=== PATIENT | female | born 1940 | race Caucasian/White ===

== ENCOUNTER 2019-02-07 18:59 | Emergency (ER) | payer MEDICARE ==
[~2019-02-07] VITALS: Ht 172.7 cm; Wt 56.2 kg
[~2019-02-07 18:59] MED LIST: LEVO50TA8 PO
[2019-02-07 19:17] VITALS: BP 125/79
--- NOTE | 2019-02-07 19:36 | NUR ---
RADIOLOGY AT BEDSIDE FOR XRAY
== END 2019-02-07 20:01 | disposition home or self-care (01) ==
LOC: ER 19:08
DX: S00.83XA Contusion of other part of head, initial encounter (principal); S80.02XA Contusion of left knee, initial encounter; E03.9 Hypothyroidism, unspecified; Z88.6 Allergy status to analgesic agent; Z91.040 Latex allergy status; Z60.2 Problems related to living alone; W01.198A Fall on same level from slipping, tripping and stumbling with subsequent striking against other object, initial encounter; Y93.89 Activity, other specified; Y92.89 Other specified places as the place of occurrence of the external cause; Y99.8 Other external cause status
CPT/HCPCS: 73564-TC

== ENCOUNTER 2022-03-24 14:34 | Emergency (ER) | payer BC, MEDICARE, OTHER ==
[~2022-03-24] VITALS: Ht 172.7 cm; Wt 53.1 kg
--- NOTE | 2022-03-24 14:35 | NUR ---
TO ER BED 9. BIBRA 839 FROM HOME C/O DIZZINESS AND WEAKNESS STARTED THIS MORNING. BG 122. PT IS A7OX3. ATTATCHED TO MONITOR. AWAITING MD JESUS.
--- NOTE | 2022-03-24 14:41 | NUR ---
IV ETSBALIHSED R UPPER ARM 20G. LABS DRAWN AND COLLECTED AT BEDSIDE.
[2022-03-24 15:06] LABS: BASOPHILS % (AUTO) 0.7 % (0.0-2.0); EOSINOPHILS % (AUTO) 1.2 % (0.0-6.0); HEMATOCRIT 40 % (33-45); HEMOGLOBIN 13.6 g/dL (11.5-14.8); LYMPHOCYTES # (AUTO) 1.1 K/uL (0.8-4.8); LYMPHOCYTES % (AUTO) 22.4 % (20.0-44.0); MEAN CORPUSCULAR HGB CONC 34 g/dl (31.0-36.0); MEAN CORPUSCULAR VOLUME 94 fL (82-100); MONOCYTES # (AUTO) 0.4 K/uL (0.1-1.30); NEUTROPHILS # (AUTO) 3.2 K/uL (1.8-8.9); NEUTROPHILS % (AUTO) 66.7 % (43.0-81.0); PLATELET COUNT (AUTO) 199 K/uL (150-450); RED BLOOD CELL COUNT(AUTO) 4.29 MIL/uL (4.0-5.2); WHITE BLOOD COUNT (AUTO) 4.8 K/uL (4.3-11.0)
--- NOTE | 2022-03-24 15:10 | NUR ---
PT TAKEN TO CT
[2022-03-24 15:24] LABS: ALANINE AMINOTRANSFERASE 25 U/L (12-78); ALBUMIN 4.4 g/dL (3.4-5.0); ALCOHOL, BLOOD < 3 mg/dL (0-0); ALKALINE PHOSPHATASE 89 U/L (46-116); ASPARTATE AMINOTRANSFERASE 32 U/L (15-37); BILIRUBIN,DIRECT 0.2 mg/dL (0.0-0.2); BILIRUBIN,TOTAL 0.7 mg/dL (0.2-1.0); CALCIUM, SERUM 9.2 mg/dL (8.5-10.1); CARBON DIOXIDE 27 mmol/L (21-32); CHLORIDE 90 mmol/L (98-107); CREATININE 0.7 mg/dL (0.6-1.3); GLUCOSE 119 mg/dL (74-106); POTASSIUM 4.1 mmol/L (3.5-5.1); SODIUM SERUM 127 mmol/L (136-145); UREA NITROGEN, BLOOD 13 mg/dL (7-18)
[2022-03-24] MEDS ORDERED: IV NS 0.9% 1,000 ML BAG IV ONE (16:00)
--- NOTE | 2022-03-24 16:08 | NUR ---
COVID TEST COLLECTED AND SENT
[2022-03-24 16:18] LABS: BILIRUBIN,URINE NEGATIVE (NEGATIVE); COLOR,URINE YELLOW (YELLOW); LEUKOCYTE ESTERASE ,URINE SMALL (NEGATIVE); NITRITE, URINE NEGATIVE (NEGATIVE); PH,URINE 6.5 (5.0-8.0); PROTEIN,URINE NEGATIVE (NEGATIVE); UGLUCOSE NEGATIVE (NEGATIVE); UROBILINOGEN,URINE 0.2 EU/dL (0.2)
[2022-03-24 16:44] LABS: BACTERIA,URINE None seen /HPF (None Seen); RBC,URINE 0-2 /HPF (0-2); WBC,URINE 0-2 /HPF (0-3)
[2022-03-24 16:45] LABS: SQUAMOUS EPITHELIAL CELL,UR 0-2 /HPF (None Seen)
--- NOTE | 2022-03-24 18:05 | NUR ---
DR. NOE OF [facility] SPEAKING WITH DR. KHALIL.
--- NOTE | 2022-03-24 18:17 | NUR ---
SADA FROM [facility] [phone] PT GOING TO [facility]... INSTRUCTIONS TO FOLLOW.
--- NOTE | 2022-03-24 19:49 | NUR ---
[address] [phone] [place] [address] [phone] (FOR QUESTIONS)
--- NOTE | 2022-03-24 19:58 | NUR ---
Selin cooley in [facility] - 03/24/22 at 2012 by [facility] ETA 2030
--- NOTE | 2022-03-24 20:09 | NUR ---
MORE TRANSPORTATION INFO: [facility] ETA 2130 ALS.
--- NOTE | 2022-03-24 20:10 | NUR ---
REPORT GIVEN TO PINA
[2022-03-24 20:38] VITALS: BP 135/64
--- NOTE | 2022-03-24 20:50 | NUR ---
Picked up by [facility] on cardiac rehabilitation specialist per ACLS. All V/S stable at time of transfer
[2022-03-24 21:36] LABS: THYROID STIMULATING HORMONE 3.363 uIU/mL (0.358-3.74)
== END 2022-03-24 20:55 | disposition short-term general hospital (02) ==
LOC: ER 14:36
DX: R53.1 Weakness (principal); E87.1 Hypo-osmolality and hyponatremia; Z20.822 Contact with and (suspected) exposure to COVID-19; R94.31 Abnormal electrocardiogram [ECG] [EKG]; E03.9 Hypothyroidism, unspecified; Z79.890 Hormone replacement therapy; Z88.6 Allergy status to analgesic agent; Z91.040 Latex allergy status
CPT/HCPCS: 36415; 70450; 71045; 80048; 80076; 80320; 81001; 83605; 84443; 84484; 85025; 87040 ×2; 87086; 87426; 93005; 96360; 99285; C9803; J7030; G0480; J7040

== ENCOUNTER 2022-04-16 13:20 | Emergency (ER) | payer OTHER ==
[~2022-04-16] VITALS: Ht 172.7 cm; Wt 52.2 kg
[2022-04-16 14:11] LABS: BASOPHILS % (AUTO) 0.5 % (0.0-2.0); EOSINOPHILS % (AUTO) 0.9 % (0.0-6.0); HEMATOCRIT 40 % (33-45); HEMOGLOBIN 13.7 g/dL (11.5-14.8); LYMPHOCYTES # (AUTO) 0.9 K/uL (0.8-4.8); LYMPHOCYTES % (AUTO) 23.1 % (20.0-44.0); MEAN CORPUSCULAR HGB CONC 34 g/dl (31.0-36.0); MEAN CORPUSCULAR VOLUME 94 fL (82-100); MONOCYTES # (AUTO) 0.5 K/uL (0.1-1.30); MONOCYTES % (AUTO) 12.9 % (2.0-12.0); NEUTROPHILS # (AUTO) 2.3 K/uL (1.8-8.9); NEUTROPHILS % (AUTO) 62.6 % (43.0-81.0); PLATELET COUNT (AUTO) 204 K/uL (150-450); RED BLOOD CELL COUNT(AUTO) 4.32 MIL/uL (4.0-5.2); WHITE BLOOD COUNT (AUTO) 3.7 K/uL (4.3-11.0)
[2022-04-16 14:21] LABS: CALCIUM, SERUM 9.1 mg/dL (8.5-10.1); CARBON DIOXIDE 31 mmol/L (21-32); CHLORIDE 86 mmol/L (98-107); CREATININE 0.7 mg/dL (0.6-1.3); GLUCOSE 147 mg/dL (74-106); POTASSIUM 4.1 mmol/L (3.5-5.1); SODIUM SERUM 121 mmol/L (136-145); UREA NITROGEN, BLOOD 8 mg/dL (7-18)
[2022-04-16] MEDS ORDERED: IV NS 0.9% 1,000 ML BAG IV ONE (15:00)
[2022-04-16 15:45] LABS: THYROID STIMULATING HORMONE 3.803 uIU/mL (0.358-3.74)
[2022-04-16 21:35] VITALS: BP 117/53
[2022-04-17] MEDS ORDERED: LEVOTHYROXINE SODIUM 50 MCG TABLET PO SCH (07:30)
== END 2022-04-16 21:38 | disposition short-term general hospital (02) ==
LOC: ER 13:25
DX: R53.1 Weakness (principal); E87.1 Hypo-osmolality and hyponatremia; Z20.822 Contact with and (suspected) exposure to COVID-19; E03.9 Hypothyroidism, unspecified; Z79.890 Hormone replacement therapy; R94.31 Abnormal electrocardiogram [ECG] [EKG]; M50.30 Other cervical disc degeneration, unspecified cervical region
CPT/HCPCS: 36415; 70450; 71045; 72125; 80048; 82962; 84439; 84443; 84484; 85025; 87081; 87426; 93005; 96360; 96361; 99291; C9803; J7030

== ENCOUNTER 2022-06-02 01:14 | Emergency (ER) | payer OTHER ==
[~2022-06-02] VITALS: Ht 172.7 cm; Wt 49.0 kg
--- NOTE | 2022-06-02 01:30 | NUR ---
PATIENT BIBRA FROM HOME C/O THIRSTY. NO MEDICAL COMPLAINT PER PATIENT. PATIENT IS A/OX 4, RR EVEN AND UNLABORED, NO SOB NOTED, PT AFEBRILE. PATIENT TAKEN TO ER BED 11. PATIENT CONNECTED TO MONITORS. WILL CONTINUE TO MONITOR.
[2022-06-02 02:50] LABS: BASOPHILS % (AUTO) 0.5 % (0.0-2.0); EOSINOPHILS % (AUTO) 2.5 % (0.0-6.0); HEMATOCRIT 40 % (33-45); HEMOGLOBIN 13.6 g/dL (11.5-14.8); LYMPHOCYTES % (AUTO) 26.4 % (20.0-44.0); MEAN CORPUSCULAR HGB CONC 34 g/dl (31.0-36.0); MEAN CORPUSCULAR VOLUME 95 fL (82-100); MONOCYTES # (AUTO) 0.5 K/uL (0.1-1.30); MONOCYTES % (AUTO) 12.2 % (2.0-12.0); NEUTROPHILS # (AUTO) 2.2 K/uL (1.8-8.9); NEUTROPHILS % (AUTO) 58.4 % (43.0-81.0); PLATELET COUNT (AUTO) 179 K/uL (150-450); RED BLOOD CELL COUNT(AUTO) 4.23 MIL/uL (4.0-5.2); WHITE BLOOD COUNT (AUTO) 3.7 K/uL (4.3-11.0)
[2022-06-02 03:03] LABS: CARBON DIOXIDE 33 mmol/L (21-32); CHLORIDE 94 mmol/L (98-107); CREATININE 0.7 mg/dL (0.6-1.3); GLUCOSE 95 mg/dL (74-106); POTASSIUM 3.7 mmol/L (3.5-5.1); SODIUM SERUM 132 mmol/L (136-145); UREA NITROGEN, BLOOD 8 mg/dL (7-18)
[2022-06-02 03:09] LABS: ALANINE AMINOTRANSFERASE 23 U/L (12-78); ALBUMIN 4.2 g/dL (3.4-5.0); ALKALINE PHOSPHATASE 95 U/L (46-116); ASPARTATE AMINOTRANSFERASE 27 U/L (15-37); BILIRUBIN,TOTAL 0.7 mg/dL (0.2-1.0); TOTAL PROTEIN, SERUM 7.3 g/dL (6.4-8.2)
--- NOTE | 2022-06-02 05:00 | NUR ---
EZEQUIEL FORD - [facility] [phone]
--- NOTE | 2022-06-02 07:15 | NUR ---
0800 CHUTE PULLER TIME VIA [facility].
--- NOTE | 2022-06-02 07:18 | NUR ---
PT'S NEIGHBOR, ALFONZO, WILL BE WAITING FOR HER ARIVAL AT HER RESIDENCE.
--- NOTE | 2022-06-02 07:33 | NUR ---
PT PROVIDED WITH A MEAL
--- NOTE | 2022-06-02 08:29 | NUR ---
TRANSPORTATION ARRIVED TO TAKE PT BACK HOME, PT BEING TRANSPORTED HOME IN STABLE CONDITION, NEIGHBORS NOTIFIED.
[2022-06-02 08:43] VITALS: BP 141/70
--- NOTE | 2022-06-02 08:43 | NUR ---
Patient discharged to home in stable condition. Written and verbal after care instructions given. Patient verbalizes understanding of instruction.
== END 2022-06-02 08:43 | disposition home or self-care (01) ==
LOC: ER 01:16
DX: E86.0 Dehydration (principal); E03.9 Hypothyroidism, unspecified; Z88.8 Allergy status to other drugs, medicaments and biological substances; Z60.2 Problems related to living alone; Z79.899 Other long term (current) drug therapy
CPT/HCPCS: 36415; 80053-TC; 82962-TC; 84439-TC; 84443-TC; 85025-TC

== ENCOUNTER 2022-08-10 09:52 | Inpatient (IN) | payer OTHER ==
[~2022-08-10] VITALS: Ht 172.7 cm; Wt 48.1 kg
--- NOTE | 2022-08-10 10:10 | NUR ---
head of academic technology at the bedside
[2022-08-10 10:23] LABS: BASOPHILS % (AUTO) 0.5 % (0.0-2.0); EOSINOPHILS % (AUTO) 2.9 % (0.0-6.0); HEMATOCRIT 39 % (33-45); HEMOGLOBIN 13.2 g/dL (11.5-14.8); LYMPHOCYTES # (AUTO) 1.2 K/uL (0.8-4.8); LYMPHOCYTES % (AUTO) 25.8 % (20.0-44.0); MEAN CORPUSCULAR HGB CONC 34 g/dl (31.0-36.0); MEAN CORPUSCULAR VOLUME 95 fL (82-100); MONOCYTES # (AUTO) 0.7 K/uL (0.1-1.30); MONOCYTES % (AUTO) 14.3 % (2.0-12.0); NEUTROPHILS # (AUTO) 2.6 K/uL (1.8-8.9); NEUTROPHILS % (AUTO) 56.5 % (43.0-81.0); PLATELET COUNT (AUTO) 216 K/uL (150-450); RED BLOOD CELL COUNT(AUTO) 4.09 MIL/uL (4.0-5.2); WHITE BLOOD COUNT (AUTO) 4.6 K/uL (4.3-11.0)
--- NOTE | 2022-08-10 10:52 | NUR ---
AMBULATED TO THE RESTROOM WITH STEADY GAIT
--- NOTE | 2022-08-10 10:54 | NUR ---
URINE COLLECTED AND SENT TO LAB
[2022-08-10 11:09] LABS: ALANINE AMINOTRANSFERASE 23 U/L (12-78); ALBUMIN 3.8 g/dL (3.4-5.0); ALKALINE PHOSPHATASE 235 U/L (46-116); ASPARTATE AMINOTRANSFERASE 26 U/L (15-37); BILIRUBIN,DIRECT 0.2 mg/dL (0.0-0.2); BILIRUBIN,TOTAL 0.8 mg/dL (0.2-1.0); CALCIUM, SERUM 8.7 mg/dL (8.5-10.1); CARBON DIOXIDE 27 mmol/L (21-32); CHLORIDE 95 mmol/L (98-107); CREATININE 0.7 mg/dL (0.6-1.3); GLUCOSE 106 mg/dL (74-106); POTASSIUM 4.1 mmol/L (3.5-5.1); SODIUM SERUM 130 mmol/L (136-145); TOTAL PROTEIN, SERUM 6.9 g/dL (6.4-8.2); UREA NITROGEN, BLOOD 15 mg/dL (7-18)
[2022-08-10] MEDS ORDERED: DOCU-141 PO (11:11)
--- NOTE | 2022-08-10 11:17 | NUR ---
COVID ANTIGEN SWAB DONE AND SENT TO THE LAB
[2022-08-10 11:25] LABS: BILIRUBIN,URINE NEGATIVE (NEGATIVE); COLOR,URINE YELLOW (YELLOW); LEUKOCYTE ESTERASE ,URINE MODERATE (NEGATIVE); NITRITE, URINE NEGATIVE (NEGATIVE); PROTEIN,URINE NEGATIVE (NEGATIVE); UGLUCOSE NEGATIVE (NEGATIVE); UROBILINOGEN,URINE 0.2 EU/dL (0.2)
[2022-08-10 12:16] LABS: BACTERIA,URINE Few /HPF (None Seen); RBC,URINE 0-2 /HPF (0-2); SQUAMOUS EPITHELIAL CELL,UR Few /HPF (None Seen)
[2022-08-10] MEDS ORDERED: CEFTRIAXONE 1GM BAG (ER ONLY) 50 ML IV ONE (13:29)
[2022-08-10] MEDS ORDERED: CEFTRIAXONE 1GM BAG (ER ONLY) 1 GM/50 ML PIGGYBACK IV ONE (13:30)
--- NOTE | 2022-08-10 14:40 | NUR ---
BED 324-2
--- NOTE | 2022-08-10 14:49 | NUR ---
REPORT GIVEN TO MARGA MAYES OF [facility]
--- NOTE | 2022-08-10 15:50 | NUR ---
ADMISSION NOTE Received patient via wheelchair from ER. Report given by whitney. Patient is A/O x 2, able to make needs known. Stable on room air breathing evenly and unlabored. Patient oriented to room and how to use the call light. All belongings accounted for, belonging sheet signed by patient. VS taken as follows: BP 106/54, HR 61, RR 18, Temp 97.5, SPO2 99%. Lungs clear on auscultation. Bowel sounds present x4. Skin assessment done: multiple discoloration and sacrum DTI noted, photos taken and placed in chart. Patient denies any pain at this time. Safety precautions in place: bed in low, locked position; siderails up x2; call light within reach. Will continue to monitor.
--- NOTE | 2022-08-10 19:23 | NUR ---
MS RN CLOSING NOTE Patient in bed, resting comfortably. A/O x 2, able to make needs known. Stable on room air, no SOB or s/s of distress noted. IV access on LFA #20 SL, intact and patent. Patient denies any pain or discomfort a this time. All needs attended to. Due meds given. Safety precautions maintained: bed in low, locked position; siderails up x 2; call light within reach. Will endorse to machinist 2nd shift nurse for MARSHA.
--- NOTE | 2022-08-10 19:45 | NUR ---
MS RN OPENING NOTES RECEIVED PATIENT IN BED; AWAKE, ALERT AND ORIENTED X 2; WITH EPISODES OF FORGETFULNESS. BREATHING EVEN AND NONLABORED. ON ROOM AIR; TOLERATING WELL. NOT IN ANY FORM OF RESPIRATORY DISTRESS. DENIES ANY PAIN OR DISCOMFORT AT THIS TIME. WITH IV ACCESS ON LEFT FOREARM 20g; PATENT AND INTACT INFUSING WITH LR 1L REGULATED @ 80 ML/HR; FLUSHES WELL. NO INFILTRATION NOTED. NEEDS ANTICIPATED. SAFETY PRECAUTIONS IMPLEMENTED: CALL LIGHT AND TABLE WITHIN EASY REACH, SIDE RAILS UP X 2, BED IN LOWEST LOCKED POSITION. WILL CONTINUE PLAN OF CARE.
[2022-08-10 20:00] VITALS: BP 100/68
[2022-08-10] MEDS ORDERED: ONDANSETRON HCL/PF 4 MG/2 ML VIAL IVP PRN (20:00)
[2022-08-10] MEDS ORDERED: Z GUARD REMEDY 4 OZ OINT TP PRN (20:00)
[2022-08-10] MEDS ORDERED: DOCUSATE SODIUM 100 MG CAPSULE PO PRN (20:00)
[2022-08-10] MEDS ORDERED: ACETAMINOPHEN 325 MG TABLET PO PRN (20:00)
[2022-08-10] MEDS: IV LR 1000 ML 1,000 ML IV PRN (20:28)
[2022-08-10 20:32] VITALS: BP 100/68
[2022-08-10] MEDS: ENOXAPARIN SODIUM 40 MG/0.4 ML DISP.SYRIN SQ SCH (21:16)
--- NOTE | 2022-08-11 06:56 | NUR ---
MS RN CLOSING NOTES PATIENT IN BED; AWAKE, A/O X 2; WITH EPISODES OF FORGETFULNESS. RESPIRATIONS EVEN AND UNLABORED. STABLE ON ROOM AIR. IN NO APPARENT DISTRESS. NO C/O PAIN OR DISCOMFORT AT THIS TIME. WITH IV ACCESS ON LFA 20g; PATENT AND INTACT INFUSING WITH LR 1L REGULATED @ 80 ML/HR; FLUSHES WELL. ALL NEEDS MET. SAFETY PRECAUTIONS MAINTAINED: CALL LIGHT AND TABLE WITHIN EASY REACH, SIDE RAILS UP X 2, BED IN LOWEST LOCKED POSITION. ENDORSED TO DARRYN MAYES FOR MARSHA.
[2022-08-11 06:57] LABS: BASOPHILS % (AUTO) 0.6 % (0.0-2.0); EOSINOPHILS % (AUTO) 2.3 % (0.0-6.0); HEMATOCRIT 36 % (33-45); HEMOGLOBIN 12.4 g/dL (11.5-14.8); LYMPHOCYTES # (AUTO) 0.8 K/uL (0.8-4.8); LYMPHOCYTES % (AUTO) 18.9 % (20.0-44.0); MEAN CORPUSCULAR HGB CONC 34 g/dl (31.0-36.0); MEAN CORPUSCULAR VOLUME 96 fL (82-100); MONOCYTES # (AUTO) 0.5 K/uL (0.1-1.30); MONOCYTES % (AUTO) 11.9 % (2.0-12.0); NEUTROPHILS # (AUTO) 2.8 K/uL (1.8-8.9); NEUTROPHILS % (AUTO) 66.3 % (43.0-81.0); PLATELET COUNT (AUTO) 208 K/uL (150-450); WHITE BLOOD COUNT (AUTO) 4.2 K/uL (4.3-11.0)
[2022-08-11 07:35] LABS: ALBUMIN 3.3 g/dL (3.4-5.0); BILIRUBIN,TOTAL 0.6 mg/dL (0.2-1.0); CALCIUM, SERUM 8.4 mg/dL (8.5-10.1); CREATININE 0.7 mg/dL (0.6-1.3); PHOSPHORUS 3.5 mg/dL (2.5-4.9); POTASSIUM 3.7 mmol/L (3.5-5.1); TOTAL PROTEIN, SERUM 6.2 g/dL (6.4-8.2)
--- NOTE | 2022-08-11 07:40 | NUR ---
MS RN OPENING NOTES RECEIVED PATIENT IN BED; AWAKE, A/O X 2; WITH EPISODES OF FORGETFULNESS. STABLE ON ROOM AIR WITH NO NOTED SOB OR ANY DISTRESS. PATIENT IS ABLE TO AMBULATE ALTHOUGH UNSTEADY, HAS BSC. DENIED PAIN OR DISCOMFORT AT THIS TIME. WITH IV ACCESS ON LFA 20G; PATENT AND INTACT INFUSING WITH LR AT @ 80 ML/HR; FLUSHING WELL. SAFETY PRECAUTIONS IN PLACE: CALL LIGHT AND TABLE WITHIN EASY REACH, SIDE RAILS UP X 2, BED IN LOWEST LOCKED POSITION. WILL CONTINUE TO MONITOR.
[2022-08-11 08:00] VITALS: BP 98/66
[2022-08-11] MEDS: LEVOTHYROXINE SODIUM 50 MCG TABLET PO SCH (08:07)
[2022-08-11 09:59] LABS: THYROID STIMULATING HORMONE 4.636 uIU/mL (0.358-3.74)
[2022-08-11] MEDS: CEFTRIAXONE 1 G in IV D5W 50 ML IV SCH (10:02)
--- NOTE | 2022-08-11 11:42 | NUR ---
WOUND CARE CONSULT: PT PRESENTS EXTREMELY THIN AND BONY WITH SACRAL INTACT DEEP TISSUE INJURY, PRESENT ON ADMISSION. RECOMMENDATIONS MADE FOR SKIN PROTECTION. DISCUSSED WITH NURSING STAFF. IN AGREEMENT WITH PLAN OF CARE. PT IS CONTINENT. IN AGREEMENT WITH PLAN OF CARE. Addendum: 08/11/22 at 1144 by TONI JOHNSON WNDNU Amended: Links added.
--- NOTE | 2022-08-11 11:43 | NUR ---
RN NOTES WOUND NURSE TONI AT THE BEDSIDE.
--- NOTE | 2022-08-11 12:05 | NUR ---
RN NOTES CALLED [facility] [employer] FOR FEMALE PAD ORDERED BY WOUND NURSE TONI
--- NOTE | 2022-08-11 13:56 | NUR ---
RN NOTES DVT PUMP ORDERED. CALLED [facility] [employer].
[2022-08-11 16:00] VITALS: BP 100/56
[2022-08-11] MEDS: ENSURE ENLIVE 237 ML LIQUID (VANILLA) PO SCH (17:42)
--- NOTE | 2022-08-11 18:55 | NUR ---
MS RN CLOSING NOTES PATIENT IN BED; AWAKE, A/O X 2; STABLE ON ROOM AIR WITH NO NOTED SOB OR ANY DISTRESS. PATIENT IS ABLE TO AMBULATE ALTHOUGH UNSTEADY, HAS BSC. DENIED PAIN OR DISCOMFORT AT THIS TIME. WITH IV ACCESS ON LFA 20G; PATENT AND INTACT INFUSING WITH LR AT @ 80 ML/HR; FLUSHING WELL. WOUND CARE PROVIDED AND ALL KNEEDS MET. SAFETY PRECAUTIONS IN PLACE: CALL LIGHT AND TABLE WITHIN EASY REACH, SIDE RAILS UP X 2, BED IN LOWEST LOCKED POSITION. ENDORSED TO THE NEXT SHIFT.
--- NOTE | 2022-08-11 19:25 | NUR ---
MS RN OPENING NOTE PATIENT RECEIVED RESTING IN BED COMFORTABLY; A/OX2, CONFUSED/FORGETFUL; BREATHING EVEN AND UNLABORED; TOLERATING ROOM AIR WELL; NO DISTRESS NOTED; PATIENT DENIES PAIN; PATIENT AMBULATORY WITH ASSIST, USES BSC THROUGHOUT NIGHT; LFA #20G INTACT AND PATENT, FLUSHING WELL; TOLERATING IVF WELL; NO S/S OF REDNESS OR INFILTRATION NOTED; SAFETY PRECAUTIONS IMPLEMENTED; BED LOCKED IN LOW POSITION; SIDE RAILSX2, CALL LIGHT WITHIN EASY REACH; WILL CONT PLAN OF CARE
[2022-08-11 20:00] VITALS: BP 125/74
[2022-08-11] MEDS: IV LR 1000 ML 1,000 ML IV PRN (21:05)
[2022-08-11] MEDS: ENOXAPARIN SODIUM 40 MG/0.4 ML DISP.SYRIN SQ SCH (21:07)
[2022-08-11 22:34] VITALS: BP 125/74
[2022-08-12 06:44] LABS: BASOPHILS % (AUTO) 0.5 % (0.0-2.0); EOSINOPHILS % (AUTO) 3.7 % (0.0-6.0); HEMATOCRIT 39 % (33-45); HEMOGLOBIN 13.2 g/dL (11.5-14.8); LYMPHOCYTES # (AUTO) 0.9 K/uL (0.8-4.8); LYMPHOCYTES % (AUTO) 22.1 % (20.0-44.0); MEAN CORPUSCULAR HGB CONC 34 g/dl (31.0-36.0); MEAN CORPUSCULAR VOLUME 96 fL (82-100); MONOCYTES # (AUTO) 0.5 K/uL (0.1-1.30); MONOCYTES % (AUTO) 12.9 % (2.0-12.0); NEUTROPHILS # (AUTO) 2.5 K/uL (1.8-8.9); NEUTROPHILS % (AUTO) 60.8 % (43.0-81.0); PLATELET COUNT (AUTO) 210 K/uL (150-450); RED BLOOD CELL COUNT(AUTO) 4.11 MIL/uL (4.0-5.2); WHITE BLOOD COUNT (AUTO) 4.2 K/uL (4.3-11.0)
--- NOTE | 2022-08-12 06:59 | NUR ---
MS RN CLOSING NOTE PATIENT RESTING IN BED COMFORTABLY; A/OX2, CONFUSED/FORGETFUL; BREATHING EVEN AND UNLABORED; TOLERATING ROOM AIR WELL; NO DISTRESS NOTED; PATIENT DENIES PAIN; PATIENT AMBULATORY WITH ASSIST, USED BSC THROUGHOUT SHIFT; LFA #20G INTACT AND PATENT, FLUSHING WELL; TOLERATING IVF WELL; NO S/S OF REDNESS OR INFILTRATION NOTED; SAFETY PRECAUTIONS IMPLEMENTED; BED LOCKED IN LOW POSITION; SIDE RAILSX2, CALL LIGHT WITHIN EASY REACH; BED ALARM ON; WILL ENDORSE MARSHA TO ONCOMING SHIFT
[2022-08-12] MEDS: LEVOTHYROXINE SODIUM 50 MCG TABLET PO SCH (07:24)
--- NOTE | 2022-08-12 07:30 | NUR ---
MS RN OPENING NOTE RECEIVED PATIENT AWAKE IN BED. PATIENT IS ALERT AND ORIENTED TIMES 2-3 WITH EPISODES OF CONFUSION. NO PAIN NOTED. NO SOB NOTED. NO DISTRESS NOTED. LFA IV ACCESS INTACT RUNNING LR AT 80 ML/HR. AMBULATES WITH ASSISTANCE. ALL SAFETY MEASURES IN PLACE. BED LOCKED IN THE LOWEST POSITION. CALL LIGHT AND TABLE IN EASY REACH. WILL CONTINUE TO MONITOR.
[2022-08-12 07:34] LABS: CALCIUM, SERUM 8.8 mg/dL (8.5-10.1); CREATININE 0.6 mg/dL (0.6-1.3); PHOSPHORUS 3.5 mg/dL (2.5-4.9); POTASSIUM 4.6 mmol/L (3.5-5.1)
[2022-08-12 08:00] VITALS: BP_SYST 134; BP_SYST 146; BP_DIAS 74
[2022-08-12] MEDS: ENSURE ENLIVE 237 ML LIQUID (VANILLA) PO SCH (09:25)
[2022-08-12] MEDS: CEFTRIAXONE 1 G in IV D5W 50 ML IV SCH (09:25)
[2022-08-12] MEDS ORDERED: CEPH500C2 PO (10:01)
--- NOTE | 2022-08-12 18:51 | NUR ---
MS LAMP STACK DEVELOPER NOTE DISCHARGE PATIENT IN STABLE CONDITION WITH STABLE VITAL SIGNS. PATIENT WILL BE DC HOME WITH HOME HEALTH. NO PAIN NOTED , NO DISTRESS NOTED. ALL THE DISCHARGE INSTRUCTIONS GIVEN TO THE PATIENT. PATIENT VERBALIZED UNDERSTANDING. ALL THE BELONGINGS ACCOUNTED AND SIGNED FOR. IV SITE REMOVED COVERED WITH DRY DRESSING. ID BAND REMOVED. PATIENT LEFT HOSPITAL AT 1700 WITH TAXI IN STABLE CONDITION. MD AND CHARGE NURSE AWARE OF THE DISCHARGE.
--- NOTE | 2022-08-14 08:50 | NUR ---
APS REPORT #[id number] FOR WELLNESS CHECK AT HOME.
== END 2022-08-12 17:00 | disposition home or self-care (01) | DRG 690 ==
LOC: ER 09:56 → MED 14:42
PROVIDERS: ADMIT Nurse Practitioner Acute Care
DX: N39.0 Urinary tract infection, site not specified (principal); E87.1 Hypo-osmolality and hyponatremia; E03.9 Hypothyroidism, unspecified; Z88.6 Allergy status to analgesic agent; Z91.040 Latex allergy status; Z79.899 Other long term (current) drug therapy; Z74.09 Other reduced mobility; E88.09 Other disorders of plasma-protein metabolism, not elsewhere classified; R26.2 Difficulty in walking, not elsewhere classified
CPT/HCPCS: 36415; 71045-TC; 80048-TC; 80053-TC; 80061-TC; 80076-TC; 81001; 83605-TC; 83735-TC; 84100-TC; 84443-TC; 84484-TC; 85025-TC; 85730-TC; 87040-TC; 87086-TC; 93307-TC; 97116-TC; 97530-TC; C9803; G0378; J0696; J1650; J7060; J7120

== ENCOUNTER 2022-11-11 13:40 | Inpatient (IN) | payer OTHER ==
[~2022-11-11] VITALS: Ht 170.2 cm; Wt 47.6 kg
[~2022-11-11 13:40] MED LIST changes: +CEPH500C2 PO; +DOCU-141 PO
--- NOTE | 2022-11-11 13:50 | NUR ---
[id number] FROM HOME C/O L HIP AREA PAIN S/P GLF TODAY. PER PARAMEDICS PT WAS STANDING BY THE DOOR WAITNG FOR THEM.
[2022-11-11] MEDS ORDERED: IBUP-2715 PO (16:02)
--- NOTE | 2022-11-11 17:07 | NUR ---
MOVE SHEET SUBMITTED
--- NOTE | 2022-11-11 17:30 | NUR ---
established iv line right ac 20 g
--- NOTE | 2022-11-11 17:35 | NUR ---
blood sample obtained sent to lab
--- NOTE | 2022-11-11 18:04 | NUR ---
HANS ([facility]) [phone]
--- NOTE | 2022-11-11 18:24 | NUR ---
wilks catheter inserted as ordered
[2022-11-11] MEDS ORDERED: ACETAMINOPHEN 325 MG TABLET PO PRN (18:30)
[2022-11-11] MEDS ORDERED: IV NS 0.9% 1,000 ML IV SCH (18:30)
[2022-11-11] MEDS ORDERED: ONDANSETRON HCL/PF 4 MG/2 ML VIAL IVP PRN (18:30)
--- NOTE | 2022-11-11 18:54 | NUR ---
needs higher level of care due to pelvic fracture .
--- NOTE | 2022-11-11 19:00 | NUR ---
[facility] CALLED, CLOSED DUE TO CAPACITY PER DUSTY.
--- NOTE | 2022-11-11 19:04 | NUR ---
[facility], NOT TAKING REFERRALS AT THE MOMENT.
--- NOTE | 2022-11-11 19:07 | NUR ---
[facility] NOT TAKING TRANSFERS AT THIS TIME.
--- NOTE | 2022-11-11 19:13 | NUR ---
CALLED [facility], NO ANSWER.
--- NOTE | 2022-11-11 19:15 | NUR ---
RECEIVED REPORT FROM SUGEY HUIZAR. PATIENT CAME EARLIER WITH CC OF LEFT HIP PAIN. PATIENT FOR ADMISSION AND TRASFER DUE TO PELVIC FRACTURE. RECEIVED PT WITH AAOX4. WITH IV LINE ON RIGHT AC G20 WITH ONGOING IVF. WITH IFC ATTACHED TO URO BAG. PATIENT'S NEEDS ATTENDED. ATTACHED TO MONITOR. VITALS CHECKED.
--- NOTE | 2022-11-11 19:57 | NUR ---
POSITIONED PATIENT COMFORTABLY
[2022-11-11] MEDS: HEPARIN SODIUM, PORCINE 5000 UNITS/1 ML VIAL SQ SCH (21:00)
--- NOTE | 2022-11-11 21:31 | NUR ---
POSITIONED COMFORTABLY
--- NOTE | 2022-11-12 00:15 | NUR ---
REPOSITIONED PATIENT COMFORTABLY
--- NOTE | 2022-11-12 01:00 | NUR ---
[facility], UNABLE TO ACCEPT AT THIS TIME.
[2022-11-12 05:43] LABS: ALBUMIN 3.7 g/dL (3.4-5.0); BILIRUBIN,TOTAL 1.3 mg/dL (0.2-1.0); CALCIUM, SERUM 8.3 mg/dL (8.5-10.1); CREATININE 0.6 mg/dL (0.6-1.3); MAGNESIUM 2.1 mg/dL (1.8-2.4); POTASSIUM 3.9 mmol/L (3.5-5.1); TOTAL PROTEIN, SERUM 6.6 g/dL (6.4-8.2)
[2022-11-12 06:08] LABS: BASOPHILS % (AUTO) 0.2 % (0.0-2.0); EOSINOPHILS % (AUTO) 0.3 % (0.0-6.0); HEMATOCRIT 35 % (33-45); HEMOGLOBIN 12.1 g/dL (11.5-14.8); LYMPHOCYTES # (AUTO) 0.8 K/uL (0.8-4.8); LYMPHOCYTES % (AUTO) 11.4 % (20.0-44.0); MEAN CORPUSCULAR HGB CONC 35 g/dl (31.0-36.0); MEAN CORPUSCULAR VOLUME 95 fL (82-100); MONOCYTES # (AUTO) 0.5 K/uL (0.1-1.30); MONOCYTES % (AUTO) 6.6 % (2.0-12.0); NEUTROPHILS # (AUTO) 5.7 K/uL (1.8-8.9); NEUTROPHILS % (AUTO) 81.5 % (43.0-81.0); PLATELET COUNT (AUTO) 156 K/uL (150-450); RED BLOOD CELL COUNT(AUTO) 3.69 MIL/uL (4.0-5.2)
[2022-11-12] MEDS: LEVOTHYROXINE SODIUM 50 MCG TABLET PO SCH (07:30)
[2022-11-12] MEDS: POLYETHYLENE GLYCOL 3350 17 GM POWD.PACK PO SCH (09:00)
[2022-11-12] MEDS: DOCUSATE SODIUM LIQ 100 MG/10 ML UDC PO SCH ×2 (09:00→17:00)
[2022-11-12] MEDS: HEPARIN SODIUM, PORCINE 5000 UNITS/1 ML VIAL SQ SCH ×2 (09:00→21:00)
[2022-11-12] MEDS ORDERED: MORPHINE SULFATE INJ 2 MG/ML DISP.SYRIN ONE (14:30)
[2022-11-12] MEDS: MORPHINE SULFATE INJ 2 MG/ML DISP.SYRIN IV PRN (14:35)
--- NOTE | 2022-11-12 14:38 | NUR ---
CALLED DELONTE BELLAMY WILL CONTACT INSURANCE ABOUT TRANSFER.
--- NOTE | 2022-11-12 14:45 | NUR ---
CALLED [facility] [phone] [facility]. DELONTE IS VON, SHE'S NOT AVAILABLE, LEFT A MESSAGE TO CALL BACK.
--- NOTE | 2022-11-12 15:46 | NUR ---
CALLED [facility] [phone] CLOSED DUE TO CAPACITY PER THANIA
--- NOTE | 2022-11-12 15:51 | NUR ---
[facility] [phone] CRITICAL RED PER DUSTY
--- NOTE | 2022-11-12 15:52 | NUR ---
RECEIVED A CALL FROM DR. LITTLE ([facility]) [phone], MADE AWARE OF ORTHO'S DECISION. DR. LITTLE REQUESTED TO SPEAK TO ER MD DR. FERNANDEZ. TRANSFERRED THE CALL TO ER.
--- NOTE | 2022-11-12 16:01 | NUR ---
[facility] [phone] NIKHIL HOFFMAN
--- NOTE | 2022-11-12 18:20 | NUR ---
[facility] [phone] NOT TONIGHT. BUT WILL REVIEW CLINICALS FAXED TO [phone] ASH MORA.
--- NOTE | 2022-11-12 18:45 | NUR ---
[facility] [phone] NO ANSWER LEFT VM
--- NOTE | 2022-11-12 19:04 | NUR ---
[facility] [phone] MEERA KAUR HAS TO INITIATE TRANSFER
--- NOTE | 2022-11-12 19:58 | NUR ---
faxed clinicals to [facility] at [phone]
--- NOTE | 2022-11-13 04:48 | NUR ---
PER [facility] SOLAR ENERGY SYSTEM INSTALLER, PT IS REJECTED FROM [facility] AND [facility]. SHE IS ON THE LIST FOR [facility].
[2022-11-13] MEDS ORDERED: MORPHINE SULFATE INJ 2 MG/ML DISP.SYRIN ONE (06:19)
--- NOTE | 2022-11-13 06:30 | NUR ---
IV ESTABLISHED TO [facility] S/L
[2022-11-13] MEDS: MORPHINE SULFATE INJ 2 MG/ML DISP.SYRIN IV PRN (06:35)
--- NOTE | 2022-11-13 06:35 | NUR ---
PAIN MEDS - MORPHINE 2MG PRN IVP ADMINISTERED ORDERED. PT C/O HIP PAIN. WILL REASSESS PAIN IN 30 MINUTES.
--- NOTE | 2022-11-13 06:38 | NUR ---
PAGED MARA MERINO PER DR SULLIVAN'S ORDER. AWAITING FOR HIS CALL BACK
--- NOTE | 2022-11-13 07:15 | NUR ---
RECEIVED PT FROM PENNY MAYES PT AWAKE CONFUSED
[2022-11-13 08:25] VITALS: BP 133/59
--- NOTE | 2022-11-13 08:25 | NUR ---
HAND OFF GORDON RN TO ROOM 317 VIA DOMINGUEZ FOSTER VS AND CONDITION
--- NOTE | 2022-11-13 09:30 | NUR ---
ms rn received on bed, awake,very confuse,s/p fall from home, sustain pelvic fracture, denies pain at this time,will monitor patient's condition.
--- NOTE | 2022-11-13 12:00 | NUR ---
ms rn patient was transferred to room 225-2 for comfort and safety,all needs attended.
--- NOTE | 2022-11-13 13:00 | NUR ---
ms bello covid pcr specimen sent to lab.
--- NOTE | 2022-11-13 15:00 | NUR ---
ms wood pattern maker Thelma called ,patient will be transferred to [facility] nanette 7pm.
[2022-11-13] MEDS: LEVOTHYROXINE SODIUM 50 MCG TABLET PO SCH (16:38)
[2022-11-13] MEDS: DOCUSATE SODIUM LIQ 100 MG/10 ML UDC PO SCH ×2 (16:38→16:42)
[2022-11-13] MEDS: POLYETHYLENE GLYCOL 3350 17 GM POWD.PACK PO SCH (16:38)
[2022-11-13] MEDS: HEPARIN SODIUM, PORCINE 5000 UNITS/1 ML VIAL SQ SCH ×2 (16:41→21:00)
[2022-11-13] MEDS ORDERED: QUETIAPINE FUMARATE 25 MG TABLET PO SCH (17:00)
--- NOTE | 2022-11-13 18:15 | NUR ---
ms rn on bed, refusing still iv, patient eating dinner at this time.all needs attended.
--- NOTE | 2022-11-13 19:43 | NUR ---
MS RN OPENING NOTES RECEIVED PATIENT IN BED AWAKE. ALERT AND CONFUSE, DOES NOT KNOW HER NAME. BREATHING EVEN AND NON-LABORED ON ROOM AIR. NOT IN APPARENT DISTRESS. NO C/O PAIN OR DISCOMFORT. HAS LEFT FOREARM IV ACCESS COVERED WITH KERLIX DRESSING. SAFETY PRECAUTIONS IN PLACE: BED LOCKED AND IN LOW POSITION, SIDE RAILS UP X3, CALL LIGHT WITHIN REACH. WILL CONTINUE POC.
--- NOTE | 2022-11-13 21:19 | NUR ---
MS SVP RESEARCH & EBUSINESS OPERATIONS NOTES PATIENT LAYING IN BED AWAKE. ALERT AND CONFUSE. FREQUENT REORIENTATION NEEDED. VERBALIZED SHE HAS BURNING SENSATION IN HER VAGINAL AREA. NOT IN APPARENT DISTRESS. UNSTEADY GAIT. TRANSFER ORDER TO [facility], REPORT GIVEN TO PRABHAKAR ESPINAL. GOING TO ROOM 626. LEFT FOREARM IV ACCESS MAINTAINED. PICKED UP BY 2 MALE TECHNICIAN'S HELPER AT 2046, DISCHARGE SUMMARY AND INSTRUCTIONS PROVIDED. ALL BELONGINGS ACCOUNTED FOR. LEFT HOSPITAL VIA GURNEY IN STABLE CONDITION.
== END 2022-11-13 21:00 | disposition short-term general hospital (02) | DRG 535 ==
LOC: ER 13:42 → MED 11-13 07:58
PROVIDERS: ADMIT Nurse Practitioner Acute Care; ATTEND Nurse Practitioner Acute Care
DX: S32.810A Multiple fractures of pelvis with stable disruption of pelvic ring, initial encounter for closed fracture (principal); G93.41 Metabolic encephalopathy; S32.10XA Unspecified fracture of sacrum, initial encounter for closed fracture; E87.1 Hypo-osmolality and hyponatremia; W01.0XXA Fall on same level from slipping, tripping and stumbling without subsequent striking against object, initial encounter; Y92.009 Unspecified place in unspecified non-institutional (private) residence as the place of occurrence of the external cause; Z88.6 Allergy status to analgesic agent; Z91.040 Latex allergy status; Z79.899 Other long term (current) drug therapy; Z79.890 Hormone replacement therapy; S32.811A Multiple fractures of pelvis with unstable disruption of pelvic ring, initial encounter for closed fracture; R79.89 Other specified abnormal findings of blood chemistry; F03.90 Unspecified dementia, unspecified severity, without behavioral disturbance, psychotic disturbance, mood disturbance, and anxiety; E03.9 Hypothyroidism, unspecified; M25.78 Osteophyte, vertebrae
CPT/HCPCS: 36415; 70450-TC; 72125-TC; 72192-TC; 73502; 80053-TC; 83735-TC; 84100-TC; 85025-TC; 87081-TC; C9803; G0378; J1644; J2270; U0003

== ENCOUNTER 2023-01-05 14:52 | Inpatient (IN) | payer MEDICARE, OTHER ==
[~2023-01-05] VITALS: Ht 165.1 cm; Wt 41.3 kg
[2023-01-05] VITALS (8 sets, daily range): BP systolic 0–79; BP diastolic 0–46
[~2023-01-05 14:52] MED LIST changes: -CEPH500C2 PO; +IBUP-2715 PO
[2023-01-05] MEDS ORDERED: ETOMIDATE 2 MG/ML VIAL IV ONE ×2 (14:58→16:00)
[2023-01-05] MEDS ORDERED: SUCCINYLCHOLINE CHLORIDE 20 MG/ML VIAL IV ONE ×2 (14:58→16:00)
[2023-01-05] MEDS ORDERED: IV NS 0.9% 1,000 ML BAG IV ONE (15:00)
[2023-01-05] MEDS ORDERED: PHENYLEPHRINE 10 MG/ML VIAL ONE (15:10)
[2023-01-05] MEDS ORDERED: EPINEPHRINE (1:10,000) SYRINGE 1 MG/10 ML DISP.SYRIN ONE (15:10)
--- NOTE | 2023-01-05 15:25 | NUR ---
INTUBATION TIME FRAME: 1525 ETOMIDATE 20MG 1526 SUCCS 80MG 1527 INTUBATED 24 AT LIP.
--- NOTE | 2023-01-05 15:36 | NUR ---
COVID TEST COLLECTED AND SENT
[2023-01-05] MEDS ORDERED: BISA5TAB10 PO (15:58)
[2023-01-05] MEDS ORDERED: TYL2T PO (15:58)
[2023-01-05] MEDS ORDERED: ASCO-352 PO (15:58)
[2023-01-05] MEDS ORDERED: MULT-447 PO (15:58)
[2023-01-05] MEDS ORDERED: HYDR-3980 PO (15:58)
[2023-01-05] MEDS ORDERED: MAGN400O6 PO (15:58)
[2023-01-05] MEDS ORDERED: BISA10SU11 RC (15:58)
[2023-01-05] MEDS ORDERED: SENN-261 PO (15:58)
[2023-01-05] MEDS ORDERED: HYDR-4303 PO (15:58)
[2023-01-05] MEDS ORDERED: DOCU-141 PO (15:58)
[2023-01-05] MEDS ORDERED: MAGN400T26 PO (15:58)
[2023-01-05] MEDS ORDERED: ACET-868 PO (15:58)
[2023-01-05] MEDS ORDERED: FERR325T23 PO (15:58)
[2023-01-05] MEDS ORDERED: MORP100S3 SL (15:58)
[2023-01-05] MEDS ORDERED: VANCOMYCIN 1 GM in IV D5W 250 ML IV ONE ×2 (16:00→21:00)
[2023-01-05] MEDS ORDERED: PIPERACILLIN /TAZOBACTAM 3.375 G in IV D5W 50 ML IV ONE (16:00)
[2023-01-05] MEDS ORDERED: IV NS 0.9% 1,000 ML IV ONE (16:00)
--- NOTE | 2023-01-05 16:02 | NUR ---
PHLEBOTOMY AT BEDSIDE FOR BLOOD DRAW
[2023-01-05 16:23] LABS: HEMATOCRIT 39 % (33-45); HEMOGLOBIN 11.5 g/dL (11.5-14.8); LYMPHOCYTES # (AUTO) 2.1 K/uL (0.8-4.8); LYMPHOCYTES % (AUTO) 8.2 % (20.0-44.0); MEAN CORPUSCULAR HGB CONC 30 g/dl (31.0-36.0); MEAN CORPUSCULAR VOLUME 102 fL (82-100); MONOCYTES # (AUTO) 0.7 K/uL (0.1-1.30); MONOCYTES % (AUTO) 2.5 % (2.0-12.0); NEUTROPHILS # (AUTO) 22.9 K/uL (1.8-8.9); NEUTROPHILS % (AUTO) 89.3 % (43.0-81.0); PLATELET COUNT (AUTO) 308 K/uL (150-450); RED BLOOD CELL COUNT(AUTO) 3.78 MIL/uL (4.0-5.2); WHITE BLOOD COUNT (AUTO) 25.6 K/uL (4.3-11.0)
[2023-01-05 16:44] LABS: CALCIUM, SERUM 8.9 mg/dL (8.5-10.1); CARBON DIOXIDE 25 mmol/L (21-32); CHLORIDE 114 mmol/L (98-107); CREATININE 1.3 mg/dL (0.6-1.3); GLUCOSE 120 mg/dL (74-106); POTASSIUM 4.7 mmol/L (3.5-5.1); SODIUM SERUM 149 mmol/L (136-145); UREA NITROGEN, BLOOD 46 mg/dL (7-18)
[2023-01-05 16:57] LABS: ALANINE AMINOTRANSFERASE 27 U/L (12-78); ALKALINE PHOSPHATASE 106 U/L (46-116); ASPARTATE AMINOTRANSFERASE 32 U/L (15-37); BILIRUBIN,DIRECT 0.2 mg/dL (0.0-0.2); BILIRUBIN,TOTAL 0.6 mg/dL (0.2-1.0); TOTAL PROTEIN, SERUM 6.2 g/dL (6.4-8.2)
--- NOTE | 2023-01-05 16:58 | NUR ---
CRITICAL VALUE: ALBUMIN 1.4 PER LAB. MADE AWARE.
[2023-01-05 16:59] LABS: ALBUMIN 1.4 g/dL (3.4-5.0)
[2023-01-05 17:08] LABS: ABG BASE EXCESS 1.7 mmol/L; ABG PCO2 46.3 mmHg (35.0-45.0); ABG PH 7.386 (7.350-7.450); ABG PO2 48.5 mmHg (75.0-100.0); COHb 0.3 % (0.5-1.5); MetHb 0.3 % (0.0-1.5); O2Hb 79.2 % (94.0-97.0); PEEP,BG 0 cm H2O; SITE, ABG Right Radial; VENT MODE, BG AC 100%; VT, ABG 400 mL
[2023-01-05] MEDS: NOREPINEPHRINE 8 MG in IV NS 0.9% 242 ML IV PRN ×2 (17:27→20:42)
[2023-01-05 17:57] LABS: BAND % (MANUAL) 12 % (0.0-5.0); LYMPHOCYTES % (MANUAL) 13 % (16-48); MONOCYTES % (MANUAL) 8 % (0-11.0); NEUTROPHILS % (MANUAL) 67 (42-76)
--- NOTE | 2023-01-05 18:27 | NUR ---
RT Received pt in ER on 15 LPM via NRB (sp02 67%). Placed pt on HFNC 40LPM/100% with no improvement. Pt code status verified and pt intubated with 7.0 ETT 24cm @ Lip by Gil Aquino. Settings provided by . ETT pulled back 2cm post XRAY per . ETT now 22cm @ Lip. ABG done 1 hour post intubation. Vent changes as noted post ABG. Pt remains hypoxic after intubation and vent changes. MD aware. CT scan on hold due to pt not being stable (Hypotension + Hypoxic). Will continue to monitor.
--- NOTE | 2023-01-05 18:29 | NUR ---
DIANA POWER OF [employer]IN [employer] SEWER [phone]
[2023-01-05] MEDS ORDERED: HYDROCORTISONE SOD SUCCINATE 100 MG/2 ML VIAL ONE (19:00)
[2023-01-05] MEDS ORDERED: HYDROCORTISONE SOD SUCCINATE 100 MG/2 ML VIAL IV ONE (19:00)
--- NOTE | 2023-01-05 19:20 | NUR ---
CALLED DEVON POWER OF OVERNIGHT CASHIER TO SPEAK TO DR. FERNANDEZ. ([phone]) AWAITING A CALL BACK
[2023-01-05] MEDS: PHENYLEPHRINE 50 MG in IV NS 0.9% 245 ML IV PRN ×2 (19:30→20:43)
--- NOTE | 2023-01-05 19:39 | NUR ---
FC 16FR INSERTED; URINE COLLECTED AND SENT TO LAB
--- NOTE | 2023-01-05 19:42 | NUR ---
LEFT VOICE MESSAGE TO DIANA ([facility]) [phone]
[2023-01-05] MEDS ORDERED: LEVOTHYROXINE INJ 100 MCG VIAL IV ONE (20:00)
--- NOTE | 2023-01-05 20:05 | NUR ---
LEFT MESSAGE TO DIANA, EXPECTING CALL BACK
[2023-01-05] MEDS: EPINEPHRINE (1:1000) 10 MG in IV NS 0.9% 240 ML IV PRN ×2 (20:25→20:42)
--- NOTE | 2023-01-05 20:41 | NUR ---
GAS TURBINE MECHANIC AT PT'S BEDSIDE
--- NOTE | 2023-01-05 21:10 | NUR ---
RT AT PT'S BEDSIDE FOR ABG
--- NOTE | 2023-01-05 21:20 | NUR ---
DR. FERNANDEZ ON PHONE CALL WITH DIANA ([facility]) [phone]. DISCUSSED CODE STATUS: DNR; OK TO HAVE INTUBATION.
--- NOTE | 2023-01-05 21:26 | NUR ---
REPORT GIVEN TO [facility] RN FOR MARSHA
[2023-01-05 21:30] LABS: ABG BASE EXCESS -3.1 mmol/L; ABG PCO2 38.8 mmHg (35.0-45.0); ABG PH 7.368 (7.350-7.450); MetHb 0.4 % (0.0-1.5); O2Hb 81.5 % (94.0-97.0); PEEP,BG 5 cm H2O; SITE, ABG Right Radial; VT, ABG 400 mL
--- NOTE | 2023-01-05 22:04 | NUR ---
PT TRANSFERRED TO 260 VIA ACLS PROTOCOL WITH RT.
--- NOTE | 2023-01-05 22:18 | NUR ---
RN INITIAL NOTE PT ARRIVED TO UNIT VIA STRETCHER. PT ADMITTED FOR SEPTIC SHOCK WITH MEDICAL HISTORY INCLUDING, HYPOTHYROIDISM AND LEFT HIP FRACTURE. PT NOTED TO HAVE ETT SIZE 7 MARKED AT 22 AT THE LIP; AC 22, TV 400, FIO2 100% WITH CURRENT O2SAT OF 100%; NOTED TO BE TACHYPNEIC WITH NO OTHER S/S OF RESP DISTRESS, NO SOB, NON-LABORED AND EQUAL BREATHING. OROPHARYNGEAL TUBE MARKED AT 55 CM; CLAMPED. PT ATTACHED TO BEDSIDE MONITOR, ST WITH HR OF 152. HENLEY INTACT AND PATENT, DRAINING CLOUDY AND YELLOW URINE. IV ACCESS KN RIGHT HAND 18G, LEFT HAND 20G, AND RIGHT FEMORAL TLC WITH NS INFUSING AT 125 ML/HR, APURVA AT 3 MCG/MIN, LEVO AT 1 MCG/MIN. BED IN LOWEST POSITION, CALL LIGHT WITHIN REACH, SIDE RAILS UP X3. WILL INITIATE PLAN OF CARE. Addendum: 01/06/23 at 0647 by PRINCESS SUMIT MAYES NS AT 120 ML/HR
--- NOTE | 2023-01-05 22:20 | NUR ---
RN NOTE RECEIVED CRITICAL FROM LAB. LACTIC ACID 6.2. NOTED TO BE TRENDING DOWN FROM 6.7
[2023-01-05] MEDS: NOREPINEPHRINE 32 MG in IV NS 0.9% 218 ML IV PRN (22:42)
[2023-01-05] MEDS: IV NS 0.9% 1,000 ML IV PRN (23:16)
[2023-01-05] MEDS ORDERED: VASOPRESSIN INJ 20 UNIT/ML VIAL ONE (23:19)
[2023-01-05] MEDS: VASOPRESSIN INJ 40 UNIT in IV NS 0.9% 38 ML IV PRN (23:33)
[2023-01-06] VITALS (67 sets, daily range): BP systolic 29–124; BP diastolic 12–80
[2023-01-06] MEDS ORDERED: PIPERACILLIN /TAZOBACTAM 3.375 G in IV D5W 50 ML IV SCH ×2
[2023-01-06] MEDS ORDERED: PIPERACILLIN /TAZOBACTAM 3.375 G VIAL IV ONE ×2 (00:26→06:04)
[2023-01-06] MEDS: PIPERACILLIN /TAZOBACTAM 3.375 G in IV D5W 50 ML IV SCH ×2 (00:28→06:06)
[2023-01-06] MEDS ORDERED: MAGNESIUM HYDROXIDE 30 ML UDC PO PRN (00:30)
[2023-01-06] MEDS ORDERED: ACETAMINOPHEN 325 MG TABLET PO PRN ×2 (00:30)
[2023-01-06] MEDS ORDERED: HYDROCODONE/APAP 10/325MG TABLET PO PRN (00:30)
[2023-01-06] MEDS ORDERED: ENOXAPARIN SODIUM 40 MG/0.4 ML DISP.SYRIN SQ ONE (00:30)
[2023-01-06] MEDS ORDERED: PHENYLEPHRINE 10 MG/ML VIAL ONE (01:21)
[2023-01-06] MEDS: PHENYLEPHRINE 100 MG in IV NS 0.9% 240 ML IV PRN ×2 (01:24→08:25)
--- NOTE | 2023-01-06 02:07 | NUR ---
RN NOTE RECEIVED CRITICAL FROM LAB; LACTIC ACID 13.0, NOTED TO BE TRENDING UP FROM 6.2. ESTEE HAQUE NOTIFIED; NO NEW ORDERS.
[2023-01-06 03:27] LABS: BASOPHILS % (AUTO) 0.1 % (0.0-2.0); EOSINOPHILS % (AUTO) 0.1 % (0.0-6.0); HEMATOCRIT 36 % (33-45); HEMOGLOBIN 10.8 g/dL (11.5-14.8); LYMPHOCYTES # (AUTO) 0.8 K/uL (0.8-4.8); LYMPHOCYTES % (AUTO) 5.3 % (20.0-44.0); MEAN CORPUSCULAR HGB CONC 31 g/dl (31.0-36.0); MEAN CORPUSCULAR VOLUME 103 fL (82-100); MONOCYTES # (AUTO) 0.4 K/uL (0.1-1.30); MONOCYTES % (AUTO) 2.4 % (2.0-12.0); NEUTROPHILS # (AUTO) 13.7 K/uL (1.8-8.9); NEUTROPHILS % (AUTO) 92.1 % (43.0-81.0); PLATELET COUNT (AUTO) 184 K/uL (150-450); RED BLOOD CELL COUNT(AUTO) 3.44 MIL/uL (4.0-5.2); WHITE BLOOD COUNT (AUTO) 14.9 K/uL (4.3-11.0)
[2023-01-06 03:44] LABS: ALANINE AMINOTRANSFERASE 1220 U/L (12-78); ALKALINE PHOSPHATASE 79 U/L (46-116); ASPARTATE AMINOTRANSFERASE 1988 U/L (15-37); BILIRUBIN,TOTAL 0.8 mg/dL (0.2-1.0); CALCIUM, SERUM 8.4 mg/dL (8.5-10.1); CARBON DIOXIDE 20 mmol/L (21-32); CHLORIDE 113 mmol/L (98-107); CREATININE 1.8 mg/dL (0.6-1.3); POTASSIUM 4.6 mmol/L (3.5-5.1); SODIUM SERUM 150 mmol/L (136-145); TOTAL PROTEIN, SERUM 4.8 g/dL (6.4-8.2); UREA NITROGEN, BLOOD 50 mg/dL (7-18)
--- NOTE | 2023-01-06 03:51 | NUR ---
RN NOTE RECEIVED CRITICAL FROM LAB; GLUCOSE 41. ESTEE HAQUE NOTIFIED AND ORDERED D50 X1. ORDER CARRIED OUT.
[2023-01-06 03:54] LABS: ALBUMIN 1.3 g/dL (3.4-5.0); GLUCOSE 41 mg/dL (74-106)
[2023-01-06] MEDS ORDERED: BLOOD SUGAR DIAGNOSTIC 1 EACH STRIP IN SCH (04:00)
[2023-01-06] MEDS ORDERED: DEXTROSE 50%-WATER 50 ML DISP.SYRIN IVP STA (04:21)
--- NOTE | 2023-01-06 04:59 | NUR ---
RN NOTE AFTER ADMINISTERING D50, GLUCOSE RECHECKED AND NOTED TO BE 47 MG/DL. WILL RECHECK IN 30 MIN.
[2023-01-06] MEDS: HYDROCORTISONE SOD SUCCINATE 100 MG/2 ML VIAL IV SCH ×3 (05:37→20:38)
--- NOTE | 2023-01-06 05:49 | NUR ---
RN NOTE GLUCOSE RECHECKED, 89 MG/DL.
--- NOTE | 2023-01-06 06:39 | NUR ---
OUTCOMES MANAGER CLOSING NOTE PT REMAINS IN BED, OBTUNDED WITH SAME VENT SETTINGS; O2SAT NOTED TO BE LOW 84% AND CONTINUES TO BE TACHYPNEIC; NO S/S OF RESP DISTRESS, NO SOB OR COUGH, NON-LABORED AND EQUAL BREATHING. OGT AT 55 CM. ATTACHED TO EXTERNAL MONITOR, SR-ST WITH HR RANGING FROM 99-150. HENLEY INTACT AND PATENT, DRAINING CLOUDY AND YELLOW URINE. RIGHT FEMORAL TLC INTACT AND PATENT, FLUSHES EASILY WITH NO RESISTANCE; NS AT 120 ML/HR, APURVA 3 MCG/KG/MIN, LEVO 1 MCG/KG/MIN, VASO AT 0.03 UNITS/MIN. BP REMAINS GUARDED. ALL DUE MEDS ADMINISTERED DURING THE NIGHT. BED IN LOWEST POSITION, CALL LIGHT WITHIN REACH, SIDE RAILS UP X3. WILL ENDORSE TO DAYSHIFT NURSE TO CONTINUE CARE.
[2023-01-06] MEDS ORDERED: LEVOTHYROXINE SODIUM 50 MCG TABLET PO SCH (07:30)
--- NOTE | 2023-01-06 07:30 | NUR ---
RN note REceived patient in bed. E3VTM1, intubated with ventilator support. AC 22, TV 400mL, FIO2 100% and 0 Peep. SpO2 60% with poor sensing as patient's circulation is not good. work distributor showed ST HR 100/min. BP 50/38mmHg with 32mg levophed, vasopressin and paolo at max rate, running through right femoral CVC. Right wrist and left wrist IV sites are dry and patent. Morris is in place but only scanty amount of urine was in the drainage bag and tubing. Oral care is provided. Repositioning is done. Will continue monitoring and care.
[2023-01-06] MEDS ORDERED: ENOXAPARIN SODIUM 40 MG/0.4 ML DISP.SYRIN SQ SCH (08:00)
[2023-01-06] MEDS: SENNOSIDES 8.6 MG TABLET PO SCH ×2 (08:30→16:30)
[2023-01-06] MEDS: LEVOTHYROXINE SODIUM 50 MCG TABLET PO SCH (08:30)
[2023-01-06] MEDS: FERROUS SULFATE (325 MG) 325 MG/TAB TABLET PO SCH ×2 (08:30→16:30)
[2023-01-06] MEDS: MULTIVITAMINS,THERAGRAN 1 UDTAB TABLET PO SCH (08:30)
[2023-01-06] MEDS: ASCORBIC ACID 500 MG TABLET PO SCH ×2 (08:31→16:30)
[2023-01-06] MEDS: IV NS 0.9% 1,000 ML IV PRN (08:51)
[2023-01-06] MEDS: NOREPINEPHRINE 32 MG in IV NS 0.9% 218 ML IV PRN ×2 (08:54→21:02)
[2023-01-06] MEDS ORDERED: PANTOPRAZOLE 40 MG VIAL IV SCH (09:00)
[2023-01-06] MEDS ORDERED: IV NS 0.9% 500 ML IV ONE (09:00)
--- NOTE | 2023-01-06 09:28 | NUR ---
WOUND CARE CONSULT: PT NOT TURNED FOR SKIN ASSESSMENT AT THIS TIME DUE TO PT HEMODYNAMICALLY UNSTABLE. REVIEWED CHART, NURSING DOCUMENTATION AND PHOTO WHICH INDICATES DEEP TISSUE INJURY IN EVOLUTION TO SACRUM, PRESENT ON ADMISSION. RECOMMENDATIONS MADE FOR WOUND CARE AND SKIN PROTECTION. DISCUSSED WITH NURSING STAFF. MD IN AGREEMENT WITH PLAN OF CARE.
[2023-01-06] MEDS ORDERED: Z GUARD REMEDY 4 OZ OINT TP PRN (09:30)
[2023-01-06 09:51] LABS: ABG OXYGEN SATURATION 84.4 % (92.0-98.5); ABG PCO2 40.8 mmHg (35.0-45.0); ABG PH 7.176 (7.350-7.450); ABG PO2 58.7 mmHg (75.0-100.0); AaDO2 613.5 mmHg; COHb 0.3 % (0.5-1.5); MetHb 0.3 % (0.0-1.5); O2Hb 83.9 % (94.0-97.0); PEEP,BG 5 cm H2O; SITE, ABG Right Radial; VT, ABG 400 mL
[2023-01-06] MEDS: Z GUARD REMEDY 4 OZ OINT TP SCH (10:40)
[2023-01-06] MEDS ORDERED: SODIUM BICARBONATE SYR 50 MEQ/50 ML DISP.SYRIN IV ONE (10:45)
[2023-01-06] MEDS ORDERED: EPINEPHRINE (1:10,000) SYRINGE 1 MG/10 ML DISP.SYRIN IVP ONE (10:45)
[2023-01-06] MEDS ORDERED: ZOSYN IVPB 2.25 G in IV D5W 50ml IV SCH (12:00)
[2023-01-06] MEDS: DEXTROSE 50%-WATER 50 ML DISP.SYRIN IV PRN ×2 (12:19→13:25)
--- NOTE | 2023-01-06 12:19 | NUR ---
ICU/RN BS LESS THEN 10.DEXTROSE IV GIVEN ORDERED.ORANGE JUICE VIA NG TUBE GIVEN ORDERED.
[2023-01-06] MEDS ORDERED: INSULIN REGULAR, HUMAN 100 UNIT/ML 3 ML VIAL SQ PRN (12:30)
--- NOTE | 2023-01-06 13:00 | NUR ---
RN note REchecked blood sugar after intervention, 50. Would administer another unit of D50. And recheck BS.
--- NOTE | 2023-01-06 14:00 | NUR ---
RN note Rechecked blood sugar 112. Keep observation.
[2023-01-06] MEDS: CEFEPIME 1 GM in IV D5W 50 ML IV SCH (14:47)
--- NOTE | 2023-01-06 15:14 | NUR ---
RN note Informed RT Js for sputum culture via ETT. He has collected the sputum and sent to lab.
[2023-01-06] MEDS: VASOPRESSIN INJ 40 UNIT in IV NS 0.9% 38 ML IV PRN (15:41)
--- NOTE | 2023-01-06 16:00 | NUR ---
RN note Urine for creatinine and sodium is collected.
[2023-01-06] MEDS: Sodium Chloride 154 MEQ in IV 10% DEXTROSE 1,000 ML IV PRN (17:18)
[2023-01-06] MEDS: BLOOD SUGAR DIAGNOSTIC 1 EACH STRIP IN SCH ×2 (17:57→23:19)
[2023-01-06] MEDS ORDERED: MAGNESIUM OXIDE 400 MG TABLET PO SCH (18:00)
--- NOTE | 2023-01-06 18:30 | NUR ---
RN note Attempted to contact patient's daughter Naila to update patient's condition, but in vain. Voice message was left.
[2023-01-06 19:22] LABS: URINE SODIUM, RANDOM 33 mmol/l (40-220)
[2023-01-06 19:46] LABS: CREATININE, URINE < 13.0 MG/DL (30.0-125.0)
--- NOTE | 2023-01-06 21:36 | NUR ---
ASSISTANT CORPORATION COUNSEL OPENING NOTE PT RECEIVED IN BED, OBTUNDED. PT ETT SIZE 7.0, MARKED AT 22 AT THE LIP; AC 22, TV 450, FIO2 100%; PEEP 5 WITH CURRENT O2SAT OF 63 AND NOTED TO BE TACHYPNEIC WITH RESPIRATIONS AT 30; NO OTHER S/S OF RESP DISTRESS, NO SOB, NON-LABORED AND EQUAL BREATHING. PT ATTACHED TO BEDSIDE MONITOR, SR WITH HR 98. HENLEY INTACT AND PATENT, DRAINING CLOUDY AND YELLOW URINE WITH VERY LITTLE OUTPUT. OGT MARKED AT 55 CM. RIGHT FEMORAL TLC INTACT AND PATENT WITH D10 AT 120 ML/HR, APURVA AT 3 MCG/KG/MIN, LEVO AT 1 MCG/KG/MIN, VASO 0.03 UNITS/MIN. BED IN LOWEST POSITION, CALL LIGHT WITHIN REACH, SIDE RAILS UP X3. WILL CONTINUE TO MONITOR THROUGHOUT THE NIGHT.
[2023-01-06 22:16] LABS: BILIRUBIN,URINE 1+ (NEGATIVE); COLOR,URINE YELLOW (YELLOW); LEUKOCYTE ESTERASE ,URINE NEGATIVE (NEGATIVE); NITRITE, URINE NEGATIVE (NEGATIVE); PROTEIN,URINE 3+ mg/dl (NEGATIVE); UGLUCOSE NEGATIVE (NEGATIVE); UROBILINOGEN,URINE 0.2 EU/dL (0.2)
[2023-01-06 22:20] LABS: PH,URINE >9.0 (5.0-8.0)
[2023-01-06 22:41] LABS: BACTERIA,URINE Few /HPF (None Seen); SQUAMOUS EPITHELIAL CELL,UR Few /HPF (None Seen); TRIPLE PHOSPHATE CRYSTAL,UR Moderate /HPF (None Seen); URINE AMORPHOUS URATE Many /HPF (None Seen); WBC,URINE NONE SEEN /HPF (0-3)
[2023-01-07] VITALS (21 sets, daily range): BP systolic 51–86; BP diastolic 32–56
[2023-01-07] MEDS: PHENYLEPHRINE 100 MG in IV NS 0.9% 240 ML IV PRN (00:25)
[2023-01-07] MEDS ORDERED: ENOXAPARIN SODIUM 40 MG/0.4 ML DISP.SYRIN SQ SCH (01:00)
[2023-01-07] MEDS: CEFEPIME 1 GM in IV D5W 50 ML IV SCH (01:36)
[2023-01-07] MEDS: Sodium Chloride 154 MEQ in IV 10% DEXTROSE 1,000 ML IV PRN (02:00)
[2023-01-07 04:49] LABS: BASOPHILS # (AUTO) 0.1 K/uL (0.0-0.2); BASOPHILS % (AUTO) 0.2 % (0.0-2.0); EOSINOPHILS % (AUTO) 0.1 % (0.0-6.0); HEMATOCRIT 29 % (33-45); HEMOGLOBIN 7.4 g/dL (11.5-14.8); LYMPHOCYTES # (AUTO) 1.6 K/uL (0.8-4.8); LYMPHOCYTES % (AUTO) 5.2 % (20.0-44.0); MEAN CORPUSCULAR HGB CONC 26 g/dl (31.0-36.0); MEAN CORPUSCULAR VOLUME 118 fL (82-100); MONOCYTES # (AUTO) 0.4 K/uL (0.1-1.30); MONOCYTES % (AUTO) 1.2 % (2.0-12.0); NEUTROPHILS # (AUTO) 28.6 K/uL (1.8-8.9); NEUTROPHILS % (AUTO) 93.3 % (43.0-81.0); PLATELET COUNT (AUTO) 76 K/uL (150-450); RED BLOOD CELL COUNT(AUTO) 2.41 MIL/uL (4.0-5.2)
[2023-01-07] MEDS: HYDROCORTISONE SOD SUCCINATE 100 MG/2 ML VIAL IV SCH (05:01)
[2023-01-07 05:09] LABS: WHITE BLOOD COUNT (AUTO) 30.7 K/uL (4.3-11.0)
[2023-01-07] MEDS: BLOOD SUGAR DIAGNOSTIC 1 EACH STRIP IN SCH (05:34)
--- NOTE | 2023-01-07 06:44 | NUR ---
ELECTRIC REFRIGERATOR SERVICER CLOSING NOTE PT REMAINS IN BED, OBTUNDED; NOTED TO HAVE ABSENT PUPIL RESPONSE AND COUGH/GAG REFLEX; NO RESPONSE TO PAIN. CONTINUES ON SAME VENT SETTINGS WITH O2SAT RANGING FROM 60%-75%, TACHYPNEIC WITH NO OTHER S/S OF RESP DISTRESS, NON-LABORED AND EQUAL BREATHING. ATTACHED TO BEDSIDE MONITOR, SR WITH HR RANGING FROM 82-98. HENLEY INTACT AND PATENT, DRAINING MINIMAL CLOUDY AND YELLOW URINE. WOUNDS CLEANSED AND NEW DRESSING APPLIED; [employer] MATTRESS APPLIED. RIGHT FEMORAL TLC INTACT AND PATENT WITH D10 AT 120 ML/HR, APURVA 3MCG/KG/MIN, LEVO 1 MCG/KG/MIN, VASO 0.03 UNITS/MIN. ALL DUE MEDS ADMINISTERED DURING THE NIGHT. BED IN LOWEST POSITION, CALL LIGHT WITHIN REACH, SIDE RAILS UP X3. WILL ENDORSE TO DAYSHIFT NURSE TO CONTINUE CARE.
[2023-01-07] MEDS: LEVOTHYROXINE SODIUM 50 MCG TABLET PO SCH (07:30)
--- NOTE | 2023-01-07 08:00 | NUR ---
RN NOTES RECEIVED PATIENT DNI, UNSTABLE CONDITION, NOT RESPONDING CALLS OR TOUCH T-97F, VENT SETTINGS WITH O2-SAT RANGING FROM 60%-75%, NON-LABORED AND EQUAL BREATHING. ATTACHED TO BEDSIDE MONITOR, HR-41, BP-79/46, O2-70%, HENLEY HAS NO URINE OUTPUT, RIGHT FEMORAL TLC INTACT AND PATENT WITH D10 AT 120 ML/HR, APURVA 3MCG/KG/MIN, LEVO 1 MCG/KG/MIN, VASO 0.03 UNITS/MIN. HELD SCHEDULED MEDICATION.
[2023-01-07] MEDS: FERROUS SULFATE (325 MG) 325 MG/TAB TABLET PO SCH (09:00)
[2023-01-07] MEDS: ASCORBIC ACID 500 MG TABLET PO SCH (09:00)
[2023-01-07] MEDS: SENNOSIDES 8.6 MG TABLET PO SCH (09:00)
[2023-01-07] MEDS: MULTIVITAMINS,THERAGRAN 1 UDTAB TABLET PO SCH (09:00)
[2023-01-07] MEDS: NOREPINEPHRINE 32 MG in IV NS 0.9% 218 ML IV PRN (09:24)
[2023-01-07] MEDS: Z GUARD REMEDY 4 OZ OINT TP SCH (09:26)
--- NOTE | 2023-01-07 10:00 | NUR ---
RN NOTES NOTIFIED PATIENT POA NAME DIANA PHONE [phone], AND GET VERBAL TO ORDER TO CHANGE COMFORT CARE. NOTIFIED HOSPITALIST Dr WRIGHT, AND KIER HAND Dr HERNÁNDEZ, PUT ORDER EXTUBATE, AND COMFORT CARE ORDER, CO SIGN WITH SUGEY NELSON.
--- NOTE | 2023-01-07 10:30 | NUR ---
RT PER MD ORDER PATIENT WAS COMPASSIONATELY EXTUBATED. COMFORT MEASURES ONLY
--- NOTE | 2023-01-07 10:30 | NUR ---
RN NOTES EXTUBATED PATIENT AT THIS TIME P-44, BP-37/22, STOP INFUSING MEDICATIONS.
--- NOTE | 2023-01-07 11:00 | NUR ---
RN NOTES PATIENT IS ASYSTOLIC ON MONITOR, HEART AND LUNGS SOUNDS CARDIAC OR RESPIRATORY ACTIVITY ABSENT. PATIENT IS NON- REACTIVE TO PAIN STIMULI, NO CORNEAL ,OR PUPILLARY REFLEX PRESENT.TIME OF WAS 1100. NOTIFIED Dr WRIGHT, HOSPITALIST, TOP STOP ATTACHER, ADMITTING DHARMESH AND POA NAME KARRI . POST MORTEM CARE DONE, LABELED BELONGING, AND ID TAGS APPLIED. CALLED ONE [employer] [employer] NAME FRANKIE CASE # [id number].
--- NOTE | 2023-01-07 11:45 | NUR ---
RN NOTES CALLED [facility] [employer] AND TRANSFERRED PATIENT TO THE [facility].
[2023-01-07 16:24] LABS: BAND % (MANUAL) 26 % (0.0-5.0); LYMPHOCYTES % (MANUAL) 5 % (16-48); METAMYELOCYTES % 4 % (0-0); MONOCYTES % (MANUAL) 1 % (0-11.0); MYELOCYTES % 4 % (0-0); NEUTROPHILS % (MANUAL) 60 (42-76)
== END 2023-01-07 11:00 | DRG 871 ==
LOC: ER 14:57 → ICU 21:15
PROVIDERS: ADMIT Nurse Practitioner Acute Care
PROC: 5A1945Z Respiratory Ventilation, 24-96 Consecutive Hours (ICD-10-PCS; principal; 2023-01-05)
PROC: 0BH18EZ Insertion of Endotracheal Airway into Trachea, Via Natural or Artificial Opening Endoscopic (ICD-10-PCS; 2023-01-05)
DX: A41.9 Sepsis, unspecified organism (principal); E43 Unspecified severe protein-calorie malnutrition; G93.41 Metabolic encephalopathy; J96.01 Acute respiratory failure with hypoxia; R65.21 Severe sepsis with septic shock; J69.0 Pneumonitis due to inhalation of food and vomit; N17.0 Acute kidney failure with tubular necrosis; K72.00 Acute and subacute hepatic failure without coma; I26.99 Other pulmonary embolism without acute cor pulmonale; E87.20 Acidosis, unspecified; D68.59 Other primary thrombophilia; E87.0 Hyperosmolality and hypernatremia; Z66 Do not resuscitate; Z51.5 Encounter for palliative care; Z20.822 Contact with and (suspected) exposure to COVID-19; E03.9 Hypothyroidism, unspecified; Z96.642 Presence of left artificial hip joint; Z88.6 Allergy status to analgesic agent; Z91.040 Latex allergy status; Z79.899 Other long term (current) drug therapy; E86.0 Dehydration; E86.1 Hypovolemia; E88.09 Other disorders of plasma-protein metabolism, not elsewhere classified; E16.2 Hypoglycemia, unspecified; R57.1 Hypovolemic shock; R74.01 Elevation of levels of liver transaminase levels; D69.6 Thrombocytopenia, unspecified; Y95 Nosocomial condition; F03.90 Unspecified dementia, unspecified severity, without behavioral disturbance, psychotic disturbance, mood disturbance, and anxiety
CPT/HCPCS: 31720; 36415; 36600; 71045-TC; 76700-TC; 80048-TC; 80053-TC; 80076-TC; 81001; 82570-TC; 82803-TC; 82962-TC; 83605-TC; 83880; 84300-TC; 84443-TC; 84484-TC; 85025-TC; 85378-TC; 85730-TC; 87040-TC; 87081-TC; 87086-TC; 94003-TC; 94799-TC; A6403; C9113; C9803; G0378; J0171; J0330; J0692; J1650; J1720; J1815; J2370; J2543; J3370; J3490; J7030; J7040; J7050; J7060; J7070